=== PATIENT | male | born 1965 | race Caucasian/White ===

== ENCOUNTER 2024-04-23 22:13 | Emergency (ER) | payer OTHER, SELFPAY ==
[2024-04-23 22:13] VITALS: BMI 30.7
[2024-04-23 22:16] VITALS: BP 165/77
--- NOTE | 2024-04-23 23:02 | ED.GENMED ---
History of Present Illness
<NANCY Bruce - Last Filed: 04/24/24 01:38>
General
Chief Complaint: Skin Problem
Source: patient
Exam Limitations: none
Time Seen by Provider: 04/23/24 22:46
History of Present Illness
History of Present Illness:
Patient is a 59yo M who presents to ED w/ complaint of increase redness and cramping of L leg after cellulitis dx 2 days ago. Pt dx at and started on clindamycin. States he was told to go to ER if increase in redness, swelling, warmth, or if
cramping develops. Pt report redness/warmth went about half way up lower leg until today it is entire lower leg. Denies incr in tenderness but reports calf cramping developed after dinner today. Admits to tingling sensation in L lower leg x 2days.
He denies any possibility of ankle injury.
<Hira Mac DO - Last Filed: 04/24/24 00:21>
General
Source: patient
Exam Limitations: none
Nursing documentation reviewed up to this point in time: agreed with
Review of Systems
<NANCY Bruce - Last Filed: 04/24/24 01:38>
Review of Systems
Constitutional: Denies fever, fatigue or chills
Respiratory: Denies cough or trouble breathing
Cardiac: Denies chest pain or palpitations
ABD/GI: Denies abdominal pain, nausea, vomiting, diarrhea or constipated
Musculoskeletal: Reports edema
Neurological: Reports headache and numbness; Denies dizzy
Phy Exam
<NANCY Bruce - Last Filed: 04/24/24 01:38>
General Physical Exam
General Presentation: well appearing
General age: appears stated age
General Skin: warm and dry
General Habitus: normal
General Mental: alert
Cardiovascular Exam
Cardiovascular Exam: regular rate/rhythm, no edema, no gallop and no murmur
Pulmonary Exam
Pulmonary Exam: lungs clear, no respiratory distress, no rales, no crackles, no rhonchi and no wheezing
Neurological Exam
Neurological Exam: alert, oriented x3, no motor deficits, no sensory deficits and speech normal
Musculoskeletal Exam
Musculoskeletal Exam: full ROM
Skin Exam
Skin Exam: other (~2cm area of redness, swelling, and warmth surrounding a scab on L anterior ankle. Tenderness to palpation around area. No tenderness to palpation up leg. No redness or warmth of L lower leg when compared to R. Trace edema of L
ankle. Good sensation & cap refill distal to cellulitis. )
Course
<ST JanisPA - Last Filed: 04/24/24 01:38>
Orders/Labs/Results
Orders:
Orders
04/23/24 23:11
US Periph Venous LOWER Ext LT Urgent
Comment:
Reason For Exam: calf tenderness
Vital Signs
Initial and Last Documented VS:
Initial Vital Signs
Temp Pulse Resp BP Pulse Ox
97.5 F 81 17 165/77 99
04/23/24 22:16 04/23/24 22:16 04/23/24 22:16 04/23/24 22:16 04/23/24 22:16
Last Documented Vital Signs
Temp Pulse Resp BP Pulse Ox
97.5 F 72 14 130/88 95
04/23/24 22:16 04/24/24 00:00 04/24/24 00:00 04/24/24 00:00 04/24/24 00:00
<Hira Mac DO - Last Filed: 04/24/24 00:21>
Orders/Labs/Results
Orders:
Orders
04/23/24 23:11
US Periph Venous LOWER Ext LT Urgent
Comment:
Reason For Exam: calf tenderness
Vital Signs
Initial and Last Documented VS:
Initial Vital Signs
Temp Pulse Resp BP Pulse Ox
97.5 F 81 17 165/77 99
04/23/24 22:16 04/23/24 22:16 04/23/24 22:16 04/23/24 22:16 04/23/24 22:16
Last Documented Vital Signs
Temp Pulse Resp BP Pulse Ox
97.5 F 72 14 130/88 95
04/23/24 22:16 04/24/24 00:00 04/24/24 00:00 04/24/24 00:00 04/24/24 00:00
<NANCY Bruce - Last Filed: 04/24/24 01:38>
MDM/Problems Addressed
Differential Diagnosis Includes:
cellulitis, DVT, erysipelas
<NANCY Bruce - Last Filed: 04/24/24 01:38>
*Critical Care Note
Total Time (30-74mins, 75-104mins- exclusive of procedures): Not Applicable
<Hira Mac DO - Last Filed: 04/24/24 00:21>
*Radiology
Radiology exam reviewed: radiology read reviewed
*Pulse Oximetry
Patient hypoxic: no
ED Attending Note
<NANCY Bruce - Last Filed: 04/24/24 01:38>
-
Portions of this chart may have been created with voice recognition software.� Occasional wrong word or��sound alike� substitutions may have occurred due to the inherent limitations of voice recognition software.
Discharge Plan
Departure
Patient Disposition: Home (Routine Discharge)
Date of Disposition: 04/24/24
Time of Disposition: 00:16
Patient with high blood pressure during this ER visit?: Yes
Discharge Problem:
Acute leg pain
Instructions: Wound Care (DC), BLOOD PRESSURE, Musculoskeletal Pain
Referrals:
[facility] [Outside]
Activity Restrictions/Additional Instructions:
The ultrasound of your leg was negative for DVT. Please follow-up with your family doctor and repeat the ultrasound in 1 week's time if the pain persist. Continue taking your antibiotics.
It was a pleasure meeting you and taking part in your care. We hope for your continued healing and wellness.
Please read discharge instructions in their entirety. However, they are for general education and may not describe your exact diagnosis at discharge. Information on your ER visit and medical conditions were discussed with you along with appropriate
follow up information...
If indicated, please take your medications as instructed and indicated on discharge paperwork.
Please schedule a follow up appointment as directed. Call to schedule an appointment
Please return to the emergency department with ANY change in, persisting, or worsening of symptoms. If any of your symptoms do not improve, or persist, or become more severe within 6-12 hours, please return to the emergency department for further
care.
Please return to the emergency department if you develop a headache, neck pain/stiffness, fever greater than 100.4F, chest pain, shortness of breath, persistent nausea, vomiting, slurred speech, difficulty walking, numbness/tingling, weakness, signs
of infection or any other symptoms that are worrisome to you.
If you have any questions or concerns please do not hesitate to call the Hospital at or E-mail me directly at [email or web address]
Interventions
Interventions:
*Risk Screen - Suicide Last Done: 04/23/24 22:16
*General Assessment Last Done: 04/23/24 22:16
*Neglect/Abuse Screening Last Done: 04/23/24 22:16
ED- Fall Risk Assessment Last Done: 04/24/24 01:02
*ED COVID-19 Vaccine History Last Done: 04/23/24 22:16
*Nursing Disposition Last Done: 04/24/24 01:02
ED-Skin Assessment Last Done: 04/24/24 00:13
Discharge Date and Time
Discharge Date/Time: 04/24/24 00:50
Print Language: THAI
[2024-04-24] VITALS: BP 130/88
== END 2024-04-24 00:50 | disposition home or self-care (01) ==
LOC: EMR 22:13
PROVIDERS: EMERGENCY PHYSICIAN Student in an Organized Health Care Education/Training Program
DX: M79.605 Pain in left leg (principal); R22.42 Localized swelling, mass and lump, left lower limb
CPT/HCPCS: 99284; 93971